=== PATIENT | male | born 1955 | race Caucasian/White ===

== ENCOUNTER 2017-03-15 15:49 | Emergency (ER) | payer OTHER ==
[2017-03-15 16:30] VITALS: BP 146/102
[2017-03-15] MEDS ORDERED: Diphtheria,Pertussis(Acell),Tetanus Vaccine 0.5 ML SDV IM ONE (18:11)
[2017-03-15] MEDS ORDERED: Clindamycin Phosphate 600 MG in Sodium Chloride 0.9% 100 ML IV ONE (18:13)
[2017-03-15] MEDS ORDERED: Sodium Chloride 0.9% 10 ML Syringe FLUSH PRN (18:14)
--- NOTE | 2017-03-15 18:19 | EDM.PDOC ---
ED HPI GENERAL MEDICAL PROBLEM - General Chief Complaint: Bite:Animal, Insect Stated Complaint: DOG BITE, [id number] Time Seen by Provider: 03/15/17 18:14 Source of Information: Reports: Patient History Limitations: Reports: No Limitations - History of Present Illness INITIAL COMMENTS - FREE TEXT/NARRATIVE: 62 yo male presents s/p dog bite. Was bitten on left hand and right foot by known dog who is now in quarantine. Multiple puncture wounds noted to hand. Small puncture to foot. Sensation intact, no decrease range of motion. Onset: Today, Sudden Location: Reports: Upper Extremity, Left, Lower Extremity, Right Quality: Reports: Ache Severity: Mild Improves with: Reports: None Worsens with: Reports: None Associated Symptoms: Reports: No Other Symptoms Generalized Pain Score (Numeric/FACES): 6 - Related Data Allergies Allergy/AdvReac Type Severity Reaction Status Date / Time Penicillins Allergy Cannot Verified 03/15/17 18:55 Remember Home Meds: Home Meds Tamsulosin [Flomax] 0.4 mg PO DAILY 08/16/13 [History] Omeprazole 20 mg PO ACBRK 06/23/15 [History] Lisinopril [Prinivil] 1 tab PO DAILY 03/15/17 [History] amLODIPine [Norvasc] 1 tab PO DAILY 03/15/17 [History] Past Medical History - Past Health History Medical/Surgical History: Denies Medical/Surgical History Other HEENT History: wears glasses while awake Other Psychiatric History: Suicide Ideation Social & Family History - Family History Family Medical History: Noncontributory - Tobacco Use Smoking Status *Q: Never Smoker Years of Tobacco use: 30 Packs/Tins Daily: 2 Used Tobacco, but Quit: Yes Month Tobacco Last Used: 10 yr Second Hand Smoke Exposure: No - Caffeine Use Caffeine Use: Reports: Coffee - Recreational Drug Use Recreational Drug Use: No ED ROS GENERAL - Review of Systems Review Of Systems: ROS reveals no pertinent complaints other than HPI. ED EXAM, ANIMAL BITE - Physical Exam Exam: See Below Exam Limited By: No Limitations General Appearance: Alert, WD/WN, No Apparent Distress Eye Exam: Bilateral Eye: EOMI, Normal Inspection, PERRL Respiratory/Chest: No Respiratory Distress, Lungs Clear, Normal Breath Sounds, No Accessory Muscle Use, Chest Non-Tender Cardiovascular: Normal Peripheral Pulses, Regular Rate, Rhythm, No Edema, No Gallop, No JVD, No Murmur, No Rub Extremities: Normal Inspection, Normal Range of Motion, Non-Tender, Normal Capillary Refill, No Pedal Edema Neurological: Alert, Oriented, CN II-XII Intact, Normal Cognition, Normal Gait, No Motor/Sensory Deficits Skin Exam: Normal Color, Warm/Dry, Other (puncture wounds to dorsum of hand x 2 , to dorsum web of third digit; medial right foot) Lymphatic: No Adenopathy ED ANIMAL BITE PROCEDURES - Laceration/Wound Repair Left Dorsal Hand Lac/Wound Length In cm: 1 (multiple punctures) Appearance: Subcutaneous Skin Prep: Chlorhexidine (Hibiciens), Saline Saline Irrigation (cc's): 300 Complications: No Progress/Comments: Irrigation of all wounds with chlorhexadine and saline. Course - Vital Signs Last Recorded V/S: Last Vital Signs Temp 98.2 F 03/15/17 16:27 Pulse 97 03/15/17 16:27 Resp 12 03/15/17 16:27 BP 146/102 H 03/15/17 16:27 Pulse Ox 100 03/15/17 16:27 - Orders/Labs/Meds Orders: Active Orders 24 hr Category Date Time Status Vaccines to be Administered [RC] PER UNIT ROUTINE Care 03/15/17 18:11 Active Saline Lock Insert [OM.PC] Stat Oth 03/15/17 18:14 Ordered Meds: Medications Discontinued Medications Generic Name Dose Route Start Last Admin Trade Name Freq PRN Reason Stop Dose Admin Bacitracin 1 dose 03/15/17 19:05 03/15/17 19:30 Bacitracin Oint 1 Gm TOP 03/15/17 19:06 1 dose ONETIME ONE Administration Diphtheria/Tetanus/Acell Pertussis 0.5 ml 03/15/17 18:11 03/15/17 18:57 Adacel IM 03/15/17 18:12 0.5 ml .ONCE ONE Administration Clindamycin Phosphate 600 mg/ 104 mls @ 200 mls/hr 03/15/17 18:13 03/15/17 18 :55 Sodium Chloride IV 03/15/17 18:44 200 mls/hr ONETIME ONE Administration Sodium Chloride 10 ml 03/15/17 18:14 Saline Flush FLUSH ASDIRECTED PRN Keep Vein Open Departure - Departure Time of Disposition: 19:50 Disposition: Home, Self-Care 01 Clinical Impression: Dog bite of hand Qualifiers: Encounter type: initial encounter Laterality: left Qualified Code(s): S61.452A - Open bite of left hand, initial encounter Dog bite of foot Qualifiers: Encounter type: initial encounter Laterality: right Qualified Code(s): S91.351A - Open bite, right foot, initial encounter - Discharge Information Instructions: Animal Bite, [id number] Referrals: PCP,None [Primary Care Provider] - Forms: ED Department Discharge Additional Instructions: Keep wounds clean and dry. Take antibiotics as prescribed. Follow up in 3-5 days with your PCP or in clinic for recheck of wound. Return for worsening symptoms. - My Orders Last 24 Hours: My Active Orders 03/15/17 18:11 Vaccines to be Administered [RC] PER UNIT ROUTINE 03/15/17 18:14 Saline Lock Insert [OM.PC] Stat - Assessment/Plan Last 24 Hours: My Active Orders 03/15/17 18:11 Vaccines to be Administered [RC] PER UNIT ROUTINE 03/15/17 18:14 Saline Lock Insert [OM.PC] Stat
[2017-03-15] MEDS ORDERED: Bacitracin Oint 1 GM U/D Packet TOP ONE (19:05)
== END 2017-03-15 19:56 | disposition home or self-care (01) ==
LOC: DL.ED 15:49
DX: S61.253A Open bite of left middle finger without damage to nail, initial encounter (principal); S91.351A Open bite, right foot, initial encounter; W54.0XXA Bitten by dog, initial encounter; Z88.0 Allergy status to penicillin; Z23 Encounter for immunization
CPT/HCPCS: 73120; 90471; 90715; 96365; 99283; J7050; S0077

== ENCOUNTER 2018-11-15 10:02 | Emergency (ER) | payer OTHER ==
[2018-11-15] MEDS ORDERED: Nitroglycerin 0.4 MG Tab.SL SL PRN (10:07)
[2018-11-15] MEDS ORDERED: Sodium Chloride 0.9% 10 ML Syringe FLUSH PRN (10:07)
[2018-11-15] MEDS ORDERED: Aspirin 81 MG Tab.Chew PO ONE (10:07)
--- NOTE | 2018-11-15 10:14 | EDM.PDOC ---
ED HPI GENERAL MEDICAL PROBLEM - General Chief Complaint: Chest Pain Stated Complaint: CHEST PAIN. PEEWEE IN NECK [id number] Time Seen by Provider: 11/15/18 10:03 Source of Information: Reports: Patient, Old Records, RN, RN Notes Reviewed History Limitations: Reports: No Limitations - History of Present Illness INITIAL COMMENTS - FREE TEXT/NARRATIVE: Pt presents to ER by POV with c/o sudden onset of squeezing chest pain at approx. 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 Pt states that the pain has nearly completely resolved on it's own, and rates the current pain 1/10. At the onset of pain he admits to a very slight sensation of nausea and shortness of breath. He states he was not under any physical exertion or emotional stress when the pain began. He had no other symptoms preceding the chest pain today. He denies any lightheadedness, syncope, near syncope, edema, orthopnea, or palpitations. Pt states that he did have one similar episode of chest pain sometime in the last year or two, but he did not seek medical evaluation at that time. Onset: Today, Sudden Onset Date: 11/15/18 Onset Time: 09:15 Duration: Constant, Improving Location: Reports: Chest Quality: Reports: Ache, Pressure Severity: Moderate Improves with: Reports: None Worsens with: Reports: None Associated Symptoms: Reports: No Other Symptoms Middle Chest Pain Score (Numeric/FACES): 1 - Related Data Allergies Allergy/AdvReac Type Severity Reaction Status Date / Time Penicillins Allergy Cannot Verified 11/15/18 10:07 Remember Home Meds: Home Meds Tamsulosin [Flomax] 0.4 mg PO DAILY 08/16/13 [History] Omeprazole 20 mg PO ACBRK 06/23/15 [History] Lisinopril [Prinivil] 1 tab PO DAILY 03/15/17 [History] amLODIPine [Norvasc] 5 mg PO DAILY 03/15/17 [History] Multivitamin [Multi-Vitamin Daily] 1 tab PO DAILY 11/15/18 [History] Past Medical History - Past Health History Medical/Surgical History: Denies Medical/Surgical History Other HEENT History: wears glasses while awake Cardiovascular History: Reports: Hypertension Gastrointestinal History: Reports: GERD Genitourinary History: Reports: BPH, Prostate Disorder, Renal Calculus Other Psychiatric History: Suicide Ideation Endocrine/Metabolic History: Reports: Obesity/BMI 30+ Social & Family History - Family History Family Medical History: Noncontributory - Tobacco Use Smoking Status *Q: Former Smoker Tobacco Use Within Last Twelve Months: Cigarettes - Caffeine Use Caffeine Use: Reports: Coffee - Recreational Drug Use Recreational Drug Use: No - Living Situation & Occupation Living situation: Reports: , with Spouse ED ROS GENERAL - Review of Systems Review Of Systems: ROS reveals no pertinent complaints other than HPI. ED EXAM, GENERAL - Physical Exam Exam: See Below Exam Limited By: No Limitations General Appearance: Alert, WD/WN, No Apparent Distress Eye Exam: Bilateral Eye: Normal Inspection Ears: Hearing Grossly Normal Nose: Normal Inspection, Normal Mucosa, No Blood Throat/Mouth: Normal Inspection, Normal Lips, Normal Teeth, Normal Gums, Normal Oropharynx, Normal Voice, No Airway Compromise Head: Atraumatic, Normocephalic Neck: Normal Inspection, Supple, Non-Tender, Full Range of Motion Respiratory/Chest: No Respiratory Distress, Lungs Clear, Normal Breath Sounds, No Accessory Muscle Use, Chest Non-Tender Cardiovascular: Normal Peripheral Pulses, Regular Rate, Rhythm, No Edema, No Gallop, No JVD, No Murmur, No Rub GI/Abdominal: Normal Bowel Sounds, Soft, Non-Tender, No Organomegaly, No Distention, No Abnormal Bruit, No Mass (Male) Exam: Deferred Rectal (Males) Exam: Deferred Back Exam: Normal Inspection, Full Range of Motion. No: CVA Tenderness (L), CVA Tenderness (R) Extremities: Normal Inspection, Normal Range of Motion, Non-Tender, Normal Capillary Refill, No Pedal Edema Neurological: Alert, Oriented, CN II-XII Intact, Normal Cognition, Normal Gait, No Motor/Sensory Deficits Psychiatric: Normal Affect, Normal Mood Skin Exam: Warm, Dry, Intact, Normal Color, No Rash EKG INTERPRETATION EKG Date: 11/15/18 Time: 10:09 Rhythm: Other (SR) Rate (Beats/Min): 79 [place]asper: LAD-Left Jasper Deviation P-Wave: Present QRS: Normal (with single PAC) ST-T: Normal QT: Normal Comparison: NA - No Prior EKG EKG Interpretation Comments: No acute ischemic changes. Course - Vital Signs Last Recorded V/S: Last Vital Signs Temp 36.4 C 11/15/18 10:07 Pulse 88 11/15/18 10:07 Resp 14 11/15/18 10:07 BP 149/89 H 11/15/18 10:07 Pulse Ox 100 11/15/18 10:07 - Orders/Labs/Meds Orders: Active Orders 24 hr Category Date Time Status EKG 12 Lead [EKG Documentation Completion] [RC] STAT Care 11/15/18 10:07 Active Peripheral IV Care [RC] . DIRECTED Care 11/15/18 10:08 Active Nitroglycerin [Nitrostat] Med 11/15/18 10:07 Active 0.4 mg SL Q5M PRN Sodium Chloride 0.9% [Saline Flush] Med 11/15/18 10:07 Active 10 ml FLUSH ASDIRECTED PRN Peripheral IV Insertion Adult [OM.PC] Stat Oth 11/15/18 10:07 Ordered Medication Orders Nitroglycerin (Nitrostat) 0.4 mg SL Q5M PRN PRN Reason: Chest Pain Sodium Chloride (Saline Flush) 10 ml FLUSH ASDIRECTED PRN PRN Reason: Keep Vein Open Last Admin: 11/15/18 10:20 Dose: 10 ml Labs: Laboratory Tests 11/15/18 11/15/18 11/15/18 Range/Units 10:10 10:10 10:10 WBC 5.8 (5.0-10.0) 10^3/uL RBC 4.86 (4.6-6.2) 10^6/uL Hgb 14.4 (14.0-18.0) g/dL Hct 42.1 (40.0-54.0) % MCV 86.6 D (80-100) fL MCH 29.6 (27.0-34.0) pg MCHC 34.2 (33.0-35.0) g/dL Plt Count 247 (150-450) 10^3/uL Neut % (Auto) 50.0 (42.2-75.2) % Lymph % (Auto) 36.5 (20.5-50.1) % [place] % (Auto) 9.9 H (2-8) % Eos % (Auto) 3.3 H (1.0-3.0) % Baso % (Auto) 0.3 (0.0-1.0) % D-Dimer, Quantitative 712 H (0-400) ng/mL Sodium 138 (135-145) mmol/L Potassium 3.9 (3.6-5.0) mmol/L Chloride 101 (101-111) mmol/L Carbon Dioxide 26.0 (21.0-31.0) mmol/L Anion Gap 14.9 BUN 12 (7-18) mg/dL Creatinine 0.9 (0.6-1.3) mg/dL Est Cr Clr Drug Dosing 85.62 mL/min Estimated GFR (MDRD) > 60 BUN/Creatinine Ratio 13.33 Glucose 89 (74-105) mg/dL Calcium 9.2 (8.4-10.2) mg/dl Total Bilirubin 0.8 (0.2-1.0) mg/dL AST 26 (10-42) IU/L ALT 21 (10-60) IU/L Alkaline Phosphatase 63 (42-121) IU/L Troponin I < 0.02 (0.00-0.02) ng/ml Total Protein 7.7 (6.7-8.2) g/dl Albumin 4.4 (3.2-5.5) g/dl Globulin 3.3 Albumin/Globulin Ratio 1.33 Amylase 71 (28-100) U/L Lipase 32 (22-51) U/L Meds: Medications Generic Name Dose Route Start Last Admin Trade Name Freq PRN Reason Stop Dose Admin Nitroglycerin 0.4 mg 11/15/18 10:07 Nitrostat SL Q5M PRN Chest Pain Sodium Chloride 10 ml 11/15/18 10:07 11/15/18 10:20 Saline Flush FLUSH 10 ml ASDIRECTED PRN Administration Keep Vein Open Discontinued Medications Generic Name Dose Route Start Last Admin Trade Name Freq PRN Reason Stop Dose Admin Aspirin 324 mg 11/15/18 10:07 11/15/18 10:20 Aspirin PO 11/15/18 10:08 324 mg ONETIME ONE Administration Iopamidol 100 ml 11/15/18 11:00 11/15/18 11:33 Isovue-370 (76%) IVPUSH 11/15/18 11:01 80 ml ONETIME ONE Administration - Radiology Interpretation Free Text/Narrative:: XR Chest: no acute process per Rad. report. CT Chest: no PE, no acute process, see Rad. report. Departure - Departure Time of Disposition: 12:14 Disposition: Home, Self-Care 01 Condition: Good Clinical Impression: Atypical chest pain Instructions: Nonspecific Chest Pain, [id number] Forms: ED Department Discharge Additional Instructions: Follow up in clinic with your primary doctor in the next week for recheck and consideration of cardiac stress test. Return to ER if chest pain returns or worsens. - My Orders Last 24 Hours: My Active Orders 11/15/18 10:07 EKG 12 Lead [EKG Documentation Completion] [RC] STAT Nitroglycerin [Nitrostat] 0.4 mg SL Q5M PRN Sodium Chloride 0.9% [Saline Flush] 10 ml FLUSH ASDIRECTED PRN Peripheral IV Insertion Adult [OM.PC] Stat 11/15/18 10:08 Peripheral IV Care [RC] . DIRECTED - Assessment/Plan Last 24 Hours: My Active Orders 11/15/18 10:07 EKG 12 Lead [EKG Documentation Completion] [RC] STAT Nitroglycerin [Nitrostat] 0.4 mg SL Q5M PRN Sodium Chloride 0.9% [Saline Flush] 10 ml FLUSH ASDIRECTED PRN Peripheral IV Insertion Adult [OM.PC] Stat 11/15/18 10:08 Peripheral IV Care [RC] . DIRECTED
[2018-11-15 10:20] VITALS: BP 149/89
[2018-11-15 10:40] LABS: ANION GAP 14.9; CHLORIDE,CL 101 mmol/L (101-111); SODIUM,NA 138 mmol/L (135-145)
[2018-11-15] MEDS ORDERED: Iopamidol 755 Mg/ML 100 ML Bottle IVPUSH ONE (11:00)
--- NOTE | 2018-11-15 11:18 | CR ---
Clinical history: 63-year-old male with chest pain. Interpretation: Upright AP portable chest film unremarkable except for less than optimal inspiratory effort. Normal cardiac silhouette without new cephalization of flow, signs of alveolar edema or dependent pleural fluid accumulation. No new lung mass, hilar lymphadenopathy or focal lobar pneumonia when compared to June 2015 exam. No atelectasis/collapse. No pneumothorax.
--- NOTE | 2018-11-15 12:04 | CT ---
Clinical history: 63-year-old 222 pound male with chest pain. Elevated serum D dimer (742). Rule out PE or infarct.. Scan technique: Volume acquisition of data from the chest (bony thorax, lungs and mediastinum) obtained during the intravenous administration 80 cc nonionic Isovue-370 contrast while patient was lying supine on the Siemens multislice scanner [place], [place]. All data archived in the PACS system for storage, reformatting axial/sagittal/coronal planes and study (lung/mediastinal windows). Interpretation: 1. No sign of intraluminal filling defect or thrombus pulmonary artery circulation. No peripheral lobar oligemia, infiltrate or pleural-based wedge shaped, infarcts. No pleural effusion. 2. No lung mass lesion or significant hilar/mediastinal lymphadenopathy. 3. No lobar pneumonia. Scattered small parenchymal lung cysts and a patchy "groundglass" density right upper lobe 4. Normal cardiac silhouette. No pericardial effusion, cephalization of flow, signs of alveolar edema or pleural effusion. 5. Huge 8.5 cm diameter upper pole cyst right kidney. Inhomogeneously dense gallbladder suggesting stones (sonogram?). 6. Old anterior compression vertebral bodies with marginal hypertrophic spondylosis and kyphosis at the T-L juncture. Normal caliber thoracic aorta i.e. no aneurysm or dissection. Small hiatus hernia. CONCLUSION: No evidence pulmonary embolism or infarct. No signs of heart failure, lung mass or lobar pneumonia. Renal cysts, bilaterally. Probably diseased gallbladder. Small hiatus hernia..
== END 2018-11-15 12:30 | disposition home or self-care (01) ==
LOC: DL.ED 10:02
DX: R07.89 Other chest pain (principal); I10 Essential (primary) hypertension; K21.9 Gastro-esophageal reflux disease without esophagitis; F17.210 Nicotine dependence, cigarettes, uncomplicated; Z88.0 Allergy status to penicillin; Z79.899 Other long term (current) drug therapy
CPT/HCPCS: 36415; 71045; 71260; 80053; 82150; 83690; 84484; 85025; 85379; 93005; 99285; A9270; Q9967

== ENCOUNTER 2018-11-22 06:03 | Day surgery (SDC) | payer OTHER ==
[~2018-11-22 06:03] MED LIST: Dextrose 5%-0.45% NaCl 1,000 ML IV SCH; Sodium Chloride 0.9% 10 ML Syringe FLUSH PRN
[2018-11-22] MEDS ORDERED: fentaNYL 100 MCG/2 ML SDV IV ONE ×3 (06:04→07:43)
[2018-11-22] MEDS ORDERED: Midazolam 1 MG/ML 2 ML SDV IV ONE ×3 (06:04→07:44)
[2018-11-22] MEDS ORDERED: Midazolam 1 MG/ML 2 ML SDV ONE (06:08)
[2018-11-22] MEDS ORDERED: fentaNYL 100 MCG/2 ML SDV ONE (06:08)
[2018-11-22 11:41] VITALS: BP 156/117
--- NOTE | 2018-11-22 12:33 | OR ---
DATE: 11/22/2018 PROCEDURE PERFORMED: Esophagogastroduodenoscopy and multiple pinch biopsies. INSTRUMENT USED: [id number]-[id number] Olympus video panendoscope. PREMEDICATIONS: No oral or topical anesthesia used. Fentanyl 100 mcg intravenous, Versed 2 mg intravenous. Nasal O2 cannula. The procedure was done under pulse oximetry, BP recording, and environmental monitoring specialist. INDICATION: The patient with long-standing heartburn, persistent in nature, on long-term PPI. Esophagogastroduodenoscopy is performed for detection of any active erosive lesions, Harp esophagus and/or malignancy also under consideration, H. pylori status to be determined, endoscopic hemostasis therapy if needed. DESCRIPTION OF PROCEDURE: The scope was passed with ease. Adequate visualization of the esophagus was made from proximal to distal areas. No upper esophageal lesions identified. No distal esophageal stricture. No uphill or downhill esophageal varices. No Park-[place]in tear. Grade 4 erosive changes were noted by [place] criteria. Proximally encroaching pink columnar epithelium was noted at around 35 cm distal to the oral verge. Sliding hiatal hernia was noted. No proximal gastric varices noted. Gastric fundus examination by retroflexion showed no polypoid lesions. No gastric ulcer, malignant mass, or vascular ectasia identified. Duodenal bulb showed no ulcer. Visualized second part of the duodenum was unremarkable. Multiple pinch biopsies were taken from the gastric antrum and proximal body and sent for PyloriTek test for H. pylori, and if negative in an hour, tissue is to be sent for histopathology. No bleeding was noted from any of the visualized areas at the completion of the examination. Photographs were taken of the duodenal bulb, gastric antrum, fundus, and distal esophagus. IMPRESSION: 1. Sliding hiatal hernia. 2. Grade D gastroesophageal reflux disease. The patient tolerated the procedure well. [facility] /[id number]
== END 2018-11-22 09:55 | disposition home or self-care (01) ==
LOC: DL.ENDO 06:03
PROVIDERS: ATTEND Internal Medicine Gastroenterology
DX: K21.0 Gastro-esophageal reflux disease with esophagitis (principal); K44.9 Diaphragmatic hernia without obstruction or gangrene; K62.5 Hemorrhage of anus and rectum; I10 Essential (primary) hypertension; F32.9 Major depressive disorder, single episode, unspecified; M19.90 Unspecified osteoarthritis, unspecified site; N28.1 Cyst of kidney, acquired; E66.09 Other obesity due to excess calories; Z68.32 Body mass index [BMI] 32.0-32.9, adult; Z88.0 Allergy status to penicillin; Z87.891 Personal history of nicotine dependence; Z79.899 Other long term (current) drug therapy
CPT/HCPCS: 43239; 87077; J2250; J3010; J7042

== ENCOUNTER 2018-11-23 05:29 | Day surgery (SDC) | payer OTHER ==
[2018-11-23] MEDS ORDERED: Midazolam 1 MG/ML 2 ML SDV IV ONE ×5 (05:30→07:16)
[2018-11-23] MEDS ORDERED: fentaNYL 100 MCG/2 ML SDV IV ONE ×3 (05:30→07:06)
[2018-11-23] MEDS ORDERED: Midazolam 1 MG/ML 2 ML SDV ONE (06:14)
[2018-11-23] MEDS ORDERED: fentaNYL 100 MCG/2 ML SDV ONE (06:14)
[2018-11-23] MEDS ORDERED: Dextrose 5%-0.45% NaCl 1,000 ML IV SCH (06:30)
[2018-11-23 09:33] VITALS: BP 139/97
--- NOTE | 2018-11-23 11:51 | OR ---
DATE: 11/23/2018 PROCEDURE PERFORMED: Total colonoscopy and cold snare polypectomy. INSTRUMENT USED: [id number]-IR005T Olympus video colonoscope. PREMEDICATIONS: Fentanyl 100 mcg intravenous, Versed 3 mg intravenous. Nasal O2 cannula. The procedure was done under pulse oximetry, BP recording, and ekg monitor. INDICATION: The patient with rectal bleeding and positive FIT. Colonoscopic examination is done for detection of any polypoid lesions and removal, endoscopic hemostasis therapy if needed. DESCRIPTION OF PROCEDURE: Initial rectal exam showed BPH. Rigid anoscopy was normal. The colonoscope was passed with ease up to the ileocecal area. Photographs were taken of the normal-appearing cecum, identified by appendiceal orifice and double-bulged ileocecal folds. In the mid descending colon area, a 3 mm sized benign-appearing polyp was noted. Photograph was taken. Cold snare polypectomy was done, the tissue was retrieved and sent for histopathology. No bleeding was noted from any of the visualized areas at the commencement of the examination. The bowel preparation was found to be adequate, Winslow scale 3. No stricture. No vascular ectasia. No large isolated ulcerations seen. No evidence of diffuse inflammatory bowel disease in the form of friability, contact bleeding, or ulcerations. Probing the proximal sides of folds and flexures using adequate distention and clearing up the stool material, withdrawal of the scope was made, cecum to rectum, time over 6 minutes. No bleeding was noted from any of the visualized areas at the completion of the examination. IMPRESSION: 1. Internal hemorrhoids. 2. Diminutive colonic polyp. The patient tolerated the procedure well. [facility] /[id number]
== END 2018-11-23 09:35 | disposition home or self-care (01) ==
LOC: EEVIPCON 05:29 → DL.ENDO 05:29
PROVIDERS: ATTEND Internal Medicine Gastroenterology
DX: D12.4 Benign neoplasm of descending colon (principal); K64.8 Other hemorrhoids; I10 Essential (primary) hypertension; K21.9 Gastro-esophageal reflux disease without esophagitis; N28.1 Cyst of kidney, acquired; N40.0 Benign prostatic hyperplasia without lower urinary tract symptoms; N52.9 Male erectile dysfunction, unspecified; M19.90 Unspecified osteoarthritis, unspecified site; F32.9 Major depressive disorder, single episode, unspecified; Z87.891 Personal history of nicotine dependence; E66.09 Other obesity due to excess calories; Z68.31 Body mass index [BMI] 31.0-31.9, adult; Z88.0 Allergy status to penicillin; Z98.890 Other specified postprocedural states
CPT/HCPCS: 45385; J2250; J3010; J7042

== ENCOUNTER 2019-05-26 12:21 | Emergency (ER) | payer MEDICARE, OTHER ==
[2019-05-26] MEDS ORDERED: Nitroglycerin 0.4 MG Tab.SL SL PRN (12:24)
[2019-05-26] MEDS ORDERED: Aspirin 81 MG Tab.Chew PO ONE (12:24)
[2019-05-26] MEDS ORDERED: Sodium Chloride 0.9% 10 ML Syringe FLUSH PRN (12:24)
[2019-05-26 12:58] LABS: ANION GAP 11.7; CHLORIDE,CL 103 mmol/L (101-111); SODIUM,NA 139 mmol/L (135-145)
[2019-05-26 17:37] VITALS: BP 120/88; PULSE 84
--- NOTE | 2019-05-26 17:57 | EDM.PDOC ---
Scribed by Zelda Griffin 05/26/19 1328 for Yeni Ayers MD ED HPI GENERAL MEDICAL PROBLEM - General Chief Complaint: Chest Pain Stated Complaint: chest pains [id number] Time Seen by Provider: 05/26/19 12:24 Source of Information: Reports: Patient, RN, RN Notes Reviewed History Limitations: Reports: No Limitations - History of Present Illness INITIAL COMMENTS - FREE TEXT/NARRATIVE: Patient presents to ER by POV with complaints of mid-sternum chest pain at approximately 11:30 hours radiating to his back. Patient states he is under recent stress with family. Denies shortness of breath or any other symptoms. At the time of onset he was moving some heavy household items as he was vacating his [id number] home. Currently rates pain 2/10. The pain is intermittent. He denies nausea, abdominal pain, shortness of breath or palpitations. He denies any prior history of cardiovascular disease. Onset: Today Duration: Waxing/Waning Location: Reports: Chest Quality: Reports: Pressure Severity: Mild Improves with: Reports: None Worsens with: Reports: None Associated Symptoms: Reports: No Other Symptoms Mid-Sternal Chest Pain Score (Numeric/FACES): 2 - Related Data Allergies Allergy/AdvReac Type Severity Reaction Status Date / Time Penicillins Allergy Cannot Verified 01/14/19 06:05 Remember Home Meds: Home Meds Tamsulosin [Flomax] 0.4 mg PO DAILY 08/16/13 [History] Omeprazole 20 mg PO ACBRK 06/23/15 [History] Lisinopril [Prinivil] 20 mg PO DAILY 03/15/17 [History] Multivitamin [Multi-Vitamin Daily] 1 tab PO DAILY 11/15/18 [History] amLODIPine Besylate [Amlodipine Besylate] 10 mg PO DAILY 01/10/19 [History] Past Medical History - Past Health History Medical/Surgical History: Denies Medical/Surgical History HEENT History: Reports: Impaired Vision, Other (See Below) Other HEENT History: wears glasses while awake Cardiovascular History: Reports: Hypertension Respiratory History: Reports: None Gastrointestinal History: Reports: GERD Genitourinary History: Reports: BPH, Prostate Disorder, Renal Calculus Musculoskeletal History: Reports: Fracture Other Musculoskeletal History: PREVIOUS RIGHT HAND FRACTURE Neurological History: Reports: None Other Neuro History: PT REPORTS TREMORS Psychiatric History: Reports: Suicidal Ideation Other Psychiatric History: Suicide Ideation Endocrine/Metabolic History: Reports: Obesity/BMI 30+ Hematologic History: Reports: None Immunologic History: Reports: None Oncologic (Cancer) History: Reports: None Dermatologic History: Reports: None - Infectious Disease History Infectious Disease History: Reports: None - Past Surgical History Head Surgeries/Procedures: Reports: None HEENT Surgical History: Reports: Tonsillectomy Cardiovascular Surgical History: Reports: None Respiratory Surgical History: Reports: None GI Surgical History: Reports: Colonoscopy, EGD Male Surgical History: Reports: Kidney Stone Extraction, Prostate Biopsy, Prostatectomy Endocrine Surgical History: Reports: None Neurological Surgical History: Reports: None Musculoskeletal Surgical History: Reports: Other (See Below) Other Musculoskeletal Surgeries/Procedures:: right hand fracture Oncologic Surgical History: Reports: None Dermatological Surgical History: Reports: None Social & Family History - Family History Family Medical History: Noncontributory - Caffeine Use Caffeine Use: Reports: Coffee, Soda Other Caffeine Use: 1 CUP OF COFFEE DAILY Caffeine Use Comment: OCCASSIONAL SODA POP - Living Situation & Occupation Living situation: Reports: , with Spouse ED ROS GENERAL - Review of Systems Review Of Systems: ROS reveals no pertinent complaints other than HPI. ED EXAM, GENERAL - Physical Exam Exam: See Below Exam Limited By: No Limitations General Appearance: Alert, WD/WN, No Apparent Distress Nose: Normal Inspection, No Blood Throat/Mouth: Normal Inspection, Normal Lips, Normal Teeth, Normal Gums, Normal Voice, No Airway Compromise Head: Atraumatic, Normocephalic Neck: Normal Inspection, Supple, Non-Tender, Full Range of Motion Respiratory/Chest: No Respiratory Distress, Lungs Clear, Normal Breath Sounds, No Accessory Muscle Use, Chest Non-Tender Cardiovascular: Normal Peripheral Pulses, Regular Rate, Rhythm, No Edema, No Gallop, No JVD, No Murmur, No Rub GI/Abdominal: Normal Bowel Sounds, Soft, Non-Tender, No Organomegaly, No Distention, No Abnormal Bruit, No Mass Back Exam: Normal Inspection Extremities: Normal Inspection, Normal Range of Motion, Non-Tender, Normal Capillary Refill, No Pedal Edema Neurological: Alert, Oriented, CN II-XII Intact, Normal Cognition, Normal Gait, No Motor/Sensory Deficits Psychiatric: Normal Affect, Normal Mood Skin Exam: Warm, Dry, Intact, Normal Color, No Rash EKG INTERPRETATION EKG Date: 05/26/19 Time: 12:31 Rhythm: Other (sinus rhythm) Rate (Beats/Min): 89 [place]: Normal P-Wave: Present QRS: Other (left anterior fascicular block) ST-T: Normal QT: Normal Comparison: No Change EKG Interpretation Comments: No acute ischemic changes. Second EKG done at 1752 is unchanged from the prior one. Course - Vital Signs Last Recorded V/S: Last Vital Signs Temp 97.8 F 05/26/19 13:33 Pulse 84 05/26/19 17:35 Resp 17 05/26/19 17:35 BP 120/88 05/26/19 17:35 Pulse Ox 97 05/26/19 17:35 - Orders/Labs/Meds Orders: Active Orders 24 hr Category Date Time Status EKG 12 Lead [EKG Documentation Completion] [RC] STAT Care 05/26/19 12:24 Active EKG Documentation Completion [RC] ONETIME Care 05/26/19 17:00 Active Peripheral IV Care [RC] . DIRECTED Care 05/26/19 12:24 Active Heart Healthy Diet [DIET] Diet 05/26/19 Dinner Active Nitroglycerin [Nitrostat] Med 05/26/19 12:24 Active 0.4 mg SL Q5M PRN Sodium Chloride 0.9% [Saline Flush] Med 05/26/19 12:24 Active 10 ml FLUSH ASDIRECTED PRN Peripheral IV Insertion Adult [OM.PC] Stat Oth 05/26/19 12:24 Ordered Medication Orders Nitroglycerin (Nitrostat) 0.4 mg SL Q5M PRN PRN Reason: Chest Pain Sodium Chloride (Saline Flush) 10 ml FLUSH ASDIRECTED PRN PRN Reason: Keep Vein Open Last Admin: 05/26/19 12:30 Dose: 10 ml Labs: Laboratory Tests 05/26/19 05/26/19 05/26/19 Range/Units 12:28 12:28 12:28 WBC 6.9 (5.0-10.0) 10^3/uL RBC 4.76 (4.6-6.2) 10^6/uL Hgb 14.0 (14.0-18.0) g/dL Hct 40.9 (40.0-54.0) % MCV 85.9 (80-100) fL MCH 29.4 (27.0-34.0) pg MCHC 34.2 (33.0-35.0) g/dL Plt Count 216 (150-450) 10^3/uL Neut % (Auto) 56.8 (42.2-75.2) % Lymph % (Auto) 29.8 (20.5-50.1) % [place] % (Auto) 10.2 H (2-8) % Eos % (Auto) 2.8 (1.0-3.0) % Baso % (Auto) 0.4 (0.0-1.0) % PT 9.5 (9.0-12.0) SEC INR 0.9 (0.9-1.2) APTT 23.9 (22.0-34.0) SEC Sodium 139 (135-145) mmol/L Potassium 3.7 (3.6-5.0) mmol/L Chloride 103 (101-111) mmol/L Carbon Dioxide 28.0 (21.0-31.0) mmol/L Anion Gap 11.7 BUN 14 (7-18) mg/dL Creatinine 1.2 (0.6-1.3) mg/dL Est Cr Clr Drug Dosing 57.38 mL/min Estimated GFR (MDRD) > 60 BUN/Creatinine Ratio 11.66 Glucose 88 (74-105) mg/dL Calcium 8.7 (8.4-10.2) mg/dl Total Bilirubin 0.9 (0.2-1.0) mg/dL AST 24 (10-42) IU/L ALT 22 (10-60) IU/L Alkaline Phosphatase 54 (42-121) IU/L Troponin I < 0.02 (0.00-0.02) ng/ml Total Protein 7.1 (6.7-8.2) g/dl Albumin 4.2 (3.2-5.5) g/dl Globulin 2.9 Albumin/Globulin Ratio 1.45 Lipase 32 (22-51) U/L 05/26/19 Range/Units 17:05 WBC (5.0-10.0) 10^3/uL RBC (4.6-6.2) 10^6/uL Hgb (14.0-18.0) g/dL Hct (40.0-54.0) % MCV (80-100) fL MCH (27.0-34.0) pg MCHC (33.0-35.0) g/dL Plt Count (150-450) 10^3/uL Neut % (Auto) (42.2-75.2) % Lymph % (Auto) (20.5-50.1) % [place] % (Auto) (2-8) % Eos % (Auto) (1.0-3.0) % Baso % (Auto) (0.0-1.0) % PT (9.0-12.0) SEC INR (0.9-1.2) APTT (22.0-34.0) SEC Sodium (135-145) mmol/L Potassium (3.6-5.0) mmol/L Chloride (101-111) mmol/L Carbon Dioxide (21.0-31.0) mmol/L Anion Gap BUN (7-18) mg/dL Creatinine (0.6-1.3) mg/dL Est Cr Clr Drug Dosing mL/min Estimated GFR (MDRD) BUN/Creatinine Ratio Glucose (74-105) mg/dL Calcium (8.4-10.2) mg/dl Total Bilirubin (0.2-1.0) mg/dL AST (10-42) IU/L ALT (10-60) IU/L Alkaline Phosphatase (42-121) IU/L Troponin I < 0.02 (0.00-0.02) ng/ml Total Protein (6.7-8.2) g/dl Albumin (3.2-5.5) g/dl Globulin Albumin/Globulin Ratio Lipase (22-51) U/L Meds: Medications Generic Name Dose Route Start Last Admin Trade Name Freq PRN Reason Stop Dose Admin Nitroglycerin 0.4 mg 05/26/19 12:24 Nitrostat SL Q5M PRN Chest Pain Sodium Chloride 10 ml 05/26/19 12:24 05/26/19 12:30 Saline Flush FLUSH 10 ml ASDIRECTED PRN Administration Keep Vein Open Discontinued Medications Generic Name Dose Route Start Last Admin Trade Name Freq PRN Reason Stop Dose Admin Aspirin 324 mg 05/26/19 12:24 05/26/19 12:30 Aspirin PO 05/26/19 12:25 324 mg ONETIME ONE Administration - Radiology Interpretation Free Text/Narrative:: [facility] [place] [facility] Final Radiology Report Call: [phone] assistance Online chat: [email or web address] Name: NITZA RANDOLPH Age: 64Years M Date: 05/26/2019 SSN: -- : [id number] Study: XR CHEST 1 VIEW FRONTAL Requesting Physician: YENI AYERS Images: 1 Addl Studies: Provided Clinical History: Contrast: Contrast Medium: Contrast Amount: Contrast Method: CONFIDENTIALITY STATEMENT This report is intended only for use by the referring physician, and only in accordance with law. If you received this in error, call [phone]. Page 1 of 1 PROCEDURE INFORMATION: Exam: XR Chest, 1 View Exam date and time: 05/26/2019 12:36 PM Clinical history: 64 years old, male; Chest pain; Type not specified TECHNIQUE: Imaging protocol: XR of the chest Views: 1 view. COMPARISON: CR Chest 1V Frontal 11/15/2018 10:17 AM FINDINGS: Lungs: Projection is lordotic. Lung volumes are low. Minimal bronchovascular crowding at the lung bases. No dense consolidation. Pleural space: Unremarkable. No pleural effusion. No pneumothorax. Heart/Mediastinum: Heart size is enlarged. Aorta is tortuous. Diaphragm: Increased elevation of the right hemidiaphragm compared to the left. Bones/joints: Unremarkable. IMPRESSION: 1. Low lung volumes with bronchovascular crowding at the lung bases but no pneumonia area of increased elevation of the right hemidiaphragm. 2. Cardiomegaly and tortuous aorta. Thank you for allowing us to participate in the care of your patient. Dictated and Authenticated by: Digna Ackerman MD 05/26/2019 1:26 PM Central Time ([place] & [place]) - Re-Assessments/Exams Free Text/Narrative Re-Assessment/Exam: 05/26/19 13:24 Pt's initial evaluation is negative for ACS/AMI. He has never had a cardiac stress test or any advanced cardiac work up, therefore pt will be kept as extended ER stay for four hour repeat Troponin and EKG with continuous telemetry monitoring. Departure - Departure Time of Disposition: 17:56 Disposition: Home, Self-Care 01 Condition: Good Clinical Impression: Atypical chest pain Instructions: Nonspecific Chest Pain Forms: ED Department Discharge Additional Instructions: Follow up in clinic with your primary doctor this week for recheck and consideration of cardiac stress testing. Return to ER is worse at any time. - My Orders Last 24 Hours: My Active Orders 05/26/19 12:24 EKG 12 Lead [EKG Documentation Completion] [RC] STAT Peripheral IV Care [RC] . DIRECTED Nitroglycerin [Nitrostat] 0.4 mg SL Q5M PRN Sodium Chloride 0.9% [Saline Flush] 10 ml FLUSH ASDIRECTED PRN Peripheral IV Insertion Adult [OM.PC] Stat 05/26/19 17:00 EKG Documentation Completion [RC] ONETIME 05/26/19 Dinner Heart Healthy Diet [DIET] - Assessment/Plan Last 24 Hours: My Active Orders 05/26/19 12:24 EKG 12 Lead [EKG Documentation Completion] [RC] STAT Peripheral IV Care [RC] . DIRECTED Nitroglycerin [Nitrostat] 0.4 mg SL Q5M PRN Sodium Chloride 0.9% [Saline Flush] 10 ml FLUSH ASDIRECTED PRN Peripheral IV Insertion Adult [OM.PC] Stat 05/26/19 17:00 EKG Documentation Completion [RC] ONETIME 05/26/19 Dinner Heart Healthy Diet [DIET] I have read and agree with the documentation that has been completed regarding this visit. By signing this record, I attest that the documentation was completed in my physical presence and is an accurate record of the encounter.
== END 2019-05-26 18:10 | disposition home or self-care (01) ==
LOC: DL.ED 12:21
DX: R07.89 Other chest pain (principal); I10 Essential (primary) hypertension; E66.9 Obesity, unspecified; Z88.0 Allergy status to penicillin; Z79.899 Other long term (current) drug therapy; Z98.890 Other specified postprocedural states
CPT/HCPCS: 36415; 71045; 80053; 83690; 84484; 85025; 85610; 85730; 93005; 99285; A9270; 93010; 99284

== ENCOUNTER 2019-10-22 08:52 | Emergency (ER) | payer MEDICARE, OTHER ==
[2019-10-22 09:12] VITALS: BP 138/96; PULSE 78
--- NOTE | 2019-10-22 09:18 | EDM.PDOC ---
ED HPI GENERAL MEDICAL PROBLEM - General Chief Complaint: Fever Stated Complaint: POSSIBLE PNEUMONIA Time Seen by Provider: 10/22/19 09:00 Source of Information: Reports: Patient History Limitations: Reports: No Limitations - History of Present Illness INITIAL COMMENTS - FREE TEXT/NARRATIVE: Patient comes emergency department today from home with complaints of chills. He reports that it is not uncommon for him to have chills over the past 2 years. Primarily at night. Last night he noticed them a little bit more than normal. He really has no other complaints other than chills. He does complain of shortness of breath when bending over to tie his shoes although this is chronic for him. He has no other complaints of shortness of breath. He has no chest pain palpitations weakness dizziness lightheadedness. No new shortness of breath no cough or congestion. No fever. No abdominal pain no nausea no vomiting. No hematuria dysuria or urinary frequency. No diarrhea. No rash lesions sores on his skin. He only complains of chills which were last night and nothing at this time - Related Data Allergies Allergy/AdvReac Type Severity Reaction Status Date / Time Penicillins Allergy Cannot Verified 10/22/19 09:00 Remember Home Meds: Home Meds Tamsulosin [Flomax] 0.4 mg PO DAILY 08/16/13 [History] Omeprazole 20 mg PO ACBRK 06/23/15 [History] Lisinopril [Prinivil] 20 mg PO DAILY 03/15/17 [History] Multivitamin [Multi-Vitamin Daily] 1 tab PO DAILY 11/15/18 [History] amLODIPine Besylate [Amlodipine Besylate] 10 mg PO DAILY 01/10/19 [History] hydroCHLOROthiazide [Hydrochlorothiazide] 12.5 mg PO DAILY 10/22/19 [History] Past Medical History - Past Health History Medical/Surgical History: Denies Medical/Surgical History HEENT History: Reports: Impaired Vision, Other (See Below) Other HEENT History: wears glasses while awake Cardiovascular History: Reports: Hypertension Respiratory History: Reports: None Gastrointestinal History: Reports: GERD Genitourinary History: Reports: BPH, Prostate Disorder, Renal Calculus Musculoskeletal History: Reports: Fracture Other Musculoskeletal History: PREVIOUS RIGHT HAND FRACTURE Neurological History: Reports: None Other Neuro History: PT REPORTS TREMORS Psychiatric History: Reports: Suicidal Ideation Other Psychiatric History: Suicide Ideation Endocrine/Metabolic History: Reports: Obesity/BMI 30+ Hematologic History: Reports: None Immunologic History: Reports: None Oncologic (Cancer) History: Reports: None Dermatologic History: Reports: None - Infectious Disease History Infectious Disease History: Reports: None - Past Surgical History Head Surgeries/Procedures: Reports: None HEENT Surgical History: Reports: Tonsillectomy Cardiovascular Surgical History: Reports: None Respiratory Surgical History: Reports: None GI Surgical History: Reports: Colonoscopy, EGD Male Surgical History: Reports: Kidney Stone Extraction, Prostate Biopsy, Prostatectomy Endocrine Surgical History: Reports: None Neurological Surgical History: Reports: None Musculoskeletal Surgical History: Reports: Other (See Below) Other Musculoskeletal Surgeries/Procedures:: right hand fracture Oncologic Surgical History: Reports: None Dermatological Surgical History: Reports: None Social & Family History - Family History Family Medical History: Noncontributory - Caffeine Use Caffeine Use: Reports: Coffee, Soda Other Caffeine Use: 1 CUP OF COFFEE DAILY Caffeine Use Comment: OCCASSIONAL SODA POP - Living Situation & Occupation Living situation: Reports: , with Spouse ED ROS GENERAL - Review of Systems Review Of Systems: Comprehensive ROS is negative, except as noted in HPI. ED EXAM, GENERAL - Physical Exam Exam: See Below Exam Limited By: No Limitations General Appearance: Alert, WD/WN, No Apparent Distress Eye Exam: Bilateral Eye: EOMI, PERRL Ears: Normal External Exam, Normal Canal, Normal TMs Nose: Normal Inspection, Normal Mucosa Throat/Mouth: Normal Inspection, Normal Lips, Normal Teeth, Normal Oropharynx, Normal Voice, No Airway Compromise Head: Atraumatic, Normocephalic Neck: Normal Inspection, Supple Respiratory/Chest: No Respiratory Distress, Lungs Clear, Normal Breath Sounds, No Accessory Muscle Use, Chest Non-Tender Cardiovascular: Normal Peripheral Pulses, Regular Rate, Rhythm Peripheral Pulses: 2+: Radial (L), Radial (R), Posterior Tibial (L), Posterior Tibial (R), Dorsalis Pedis (L), Dorsalis Pedis (R) GI/Abdominal: Normal Bowel Sounds, Soft (Male) Exam: Deferred Rectal (Males) Exam: Deferred Back Exam: Normal Inspection, Full Range of Motion Extremities: Normal Inspection, Normal Range of Motion, Non-Tender, Normal Capillary Refill Neurological: Alert, Oriented, Normal Cognition, No Motor/Sensory Deficits Psychiatric: Normal Affect, Normal Mood Skin Exam: Warm, Dry, Intact, Normal Color, No Rash Course - Vital Signs Last Recorded V/S: Last Vital Signs Temp 37.4 C 10/22/19 08:55 Pulse 78 10/22/19 08:55 Resp 18 10/22/19 08:55 BP 138/96 H 10/22/19 08:55 Pulse Ox 98 10/22/19 08:55 - Orders/Labs/Meds Orders: Active Orders 24 hr Category Date Time Status EKG Documentation Completion [RC] STAT Care 10/22/19 09:18 Active CULTURE URINE [RM] Stat Lab 10/22/19 09:30 Received Labs: Laboratory Tests 10/22/19 10/22/19 10/22/19 Range/Units 09:30 09:32 09:32 WBC 15.6 H (5.0-10.0) 10^3/uL RBC 5.39 (4.6-6.2) 10^6/uL Hgb 15.8 D (14.0-18.0) g/dL Hct 46.3 (40.0-54.0) % MCV 85.9 (80-100) fL MCH 29.3 (27.0-34.0) pg MCHC 34.1 (33.0-35.0) g/dL Plt Count 215 (150-450) 10^3/uL Neut % (Auto) 81.2 H (42.2-75.2) % Lymph % (Auto) 11.4 L (20.5-50.1) % [place] % (Auto) 6.7 (2-8) % Eos % (Auto) 0.4 L (1.0-3.0) % Baso % (Auto) 0.3 (0.0-1.0) % Sodium 141 (136-145) mmol/L Potassium 4.4 (3.5-5.1) mmol/L Chloride 102 (98-107) mmol/L Carbon Dioxide 29 (21-32) mmol/L Anion Gap 14.4 H (7-13) mEq/L BUN 21 H (7-18) mg/dL Creatinine 1.30 (0.70-1.30) mg/dL Est Cr Clr Drug Dosing 58.49 mL/min Estimated GFR (MDRD) 55 BUN/Creatinine Ratio 16.2 (No establ ref range) Glucose 120 H (74-99) mg/dL Calcium 9.0 (8.5-10.1) mg/dL Total Bilirubin 0.6 (0.2-1.0) mg/dL AST 22 (15-37) U/L ALT 35 (16-63) U/L Alkaline Phosphatase 76 (46-116) U/L Troponin I < 0.017 (0.000-0.056) ng/mL C-Reactive Protein 1.5 H (0.0-0.9) mg/dL Total Protein 7.7 (6.4-8.2) g/dL Albumin 4.1 (3.4-5.0) g/dL Globulin 3.6 Albumin/Globulin Ratio 1.1 Urine Color Yellow (YELLOW) Urine Appearance Slightly cloudy (CLEAR) Urine pH 6.0 (5.0-9.0) Ur Specific [place] 1.020 (1.005-1.030) Urine Protein Negative (NEGATIVE) Urine Glucose (UA) Negative (NEGATIVE) Urine Ketones Negative (NEGATIVE) Urine Occult Blood Trace-lysed H (NEGATIVE) Urine Nitrite Positive H (NEGATIVE) Urine Bilirubin Negative (NEGATIVE) Urine Urobilinogen 0.2 (0.2-1.0) mg/dL Ur Leukocyte Esterase Small H (NEGATIVE) Urine RBC 0-5 /HPF Urine WBC 5-10 H (0-5/HPF) /HPF Ur Epithelial Cells Rare (NOT SEEN) /HPF Urine Bacteria Many H (0-FEW/HPF) /HPF Urine Mucus Few H (NOT SEEN) /LPF - Re-Assessments/Exams Free Text/Narrative Re-Assessment/Exam: 10/22/19 11:49 Really his presentation really does not guide me much with his HPI. Although clearly in his urine he is infectious. His chest x-ray is negative his EKG is umremarkable as well. Cultures urine this could be indicative of a urinary tract infection and it really does not present like prostatitis he has no rectal pain pressure pain with defecation pain with ejaculation has no symptoms. If is not improving he should recheck with primary care he is comfortable with this plan his questions were answered. Departure - Departure Time of Disposition: 10:16 Disposition: Home, Self-Care 01 Clinical Impression: UTI (urinary tract infection) Qualifiers: Urinary tract infection type: site unspecified Hematuria presence: without hematuria Qualified Code(s): N39.0 - Urinary tract infection, site not specified - Discharge Information Instructions: Urinary Tract Infection, Adult, [id number] Forms: ED Department Discharge Additional Instructions: Lots of fluids over the next few days. Tylenol as needed for pain fever. Cephalexin 1 capsule 4 times a day for 7 days. RX #28 given to the patient. Return to the ED if new or worsening symptoms. Follow up with PCP in the next 4-6 days if not improving sooner if worse. During the Covid- Pandemic please make sure and stay home and away from people. Wash hand prior to leaving the house and upon returning home. Leave the house to get ESSENTIALS ONLY like groceries, medications and true life threatening illness for ED visits. Otherwise contact the ED or your clinic prior to presentation to any healthcare facility. Sepsis Event Note - Focused Exam Vital Signs: Vital Signs Temp Pulse Resp BP Pulse Ox 10/22/19 08:55 37.4 C 78 18 138/96 H 98 Date Exam was Performed: 10/22/19 Time Exam was Performed: 11:44 - My Orders Last 24 Hours: My Active Orders 10/22/19 09:18 EKG Documentation Completion [RC] STAT 10/22/19 09:30 CULTURE URINE [RM] Stat - Assessment/Plan Last 24 Hours: My Active Orders 10/22/19 09:18 EKG Documentation Completion [RC] STAT 10/22/19 09:30 CULTURE URINE [RM] Stat Assessment:: UTI in a male Plan: Lots of fluids over the next few days. Tylenol as needed for pain fever. Cephalexin 1 capsule 4 times a day for 7 days. RX #28 given to the patient. Return to the ED if new or worsening symptoms. Follow up with PCP in the next 4-6 days if not improving sooner if worse. During the Covid- Pandemic please make sure and stay home and away from people. Wash hand prior to leaving the house and upon returning home. Leave the house to get ESSENTIALS ONLY like groceries, medications and true life threatening illness for ED visits. Otherwise contact the ED or your clinic prior to presentation to any healthcare facility.
[2019-10-22 09:59] LABS: ANION GAP 14.4 mEq/L (7-13); CHLORIDE,CL 102 mmol/L (98-107); SODIUM,NA 141 mmol/L (136-145)
== END 2019-10-22 10:28 | disposition home or self-care (01) ==
LOC: DL.ED 08:52
DX: N39.0 Urinary tract infection, site not specified (principal); K21.9 Gastro-esophageal reflux disease without esophagitis; I10 Essential (primary) hypertension; E66.9 Obesity, unspecified; Z68.33 Body mass index [BMI] 33.0-33.9, adult; Z88.0 Allergy status to penicillin
CPT/HCPCS: 36415; 71046; 80053; 81001; 84484; 85025; 86140; 87086; 93005; 99284-25

== ENCOUNTER 2021-02-01 07:56 | Emergency (ER) | payer MEDICARE, OTHER ==
[2021-02-01 08:11] VITALS: BP 165/105; PULSE 84
--- NOTE | 2021-02-01 10:57 | EDM.PDOC ---
ED HPI GENERAL MEDICAL PROBLEM - General Chief Complaint: Skin Complaint Stated Complaint: [id number] RASH ON LEFT ARM, TENDER SWOLLEN Time Seen by Provider: 02/01/21 10:35 Source of Information: Reports: Patient, RN, RN Notes Reviewed History Limitations: Reports: No Limitations - History of Present Illness INITIAL COMMENTS - FREE TEXT/NARRATIVE: Dustin is a 65 y/o male who presents to the ED via personal vehicle with complaints of a patch of redness and edema to his left posterior upper arm. The patient reports noting the area this morning and does not feel it is progressing in severity. He denies injury to the area, including insect bites. He denies loss of motor or sensory function to the extremity. He has not taken any medication for his symptoms. The patient does report receiving his first COVID vaccine dose in this extremity 10 days ago. He denies headache, vision changes, fever, shaking chills, palpitations, nausea, vomiting, or diarrhea. Left Arm Pain Score (Numeric/FACES): 2 - Related Data Allergies Allergy/AdvReac Type Severity Reaction Status Date / Time Penicillins Allergy Cannot Verified 02/01/21 08:15 Remember Home Meds: Home Meds Tamsulosin [Flomax] 0.4 mg PO DAILY 08/16/13 [History] Omeprazole 20 mg PO ACBRK 06/23/15 [History] Lisinopril [Prinivil] 20 mg PO DAILY 03/15/17 [History] Multivitamin [Multi-Vitamin Daily] 1 tab PO DAILY 11/15/18 [History] amLODIPine Besylate [Amlodipine Besylate] 10 mg PO DAILY 01/10/19 [History] hydroCHLOROthiazide [Hydrochlorothiazide] 12.5 mg PO DAILY 10/22/19 [History] Past Medical History - Past Health History Medical/Surgical History: Denies Medical/Surgical History HEENT History: Reports: Impaired Vision, Other (See Below) Other HEENT History: wears glasses while awake Cardiovascular History: Reports: Hypertension Other Cardiovascular History: Palpatations Respiratory History: Reports: None Other Respiratory History: Pneumonia Gastrointestinal History: Reports: GERD Genitourinary History: Reports: BPH, Prostate Disorder, Renal Calculus Musculoskeletal History: Reports: Fracture Other Musculoskeletal History: PREVIOUS RIGHT HAND FRACTURE Neurological History: Reports: None Other Neuro History: PT REPORTS TREMORS Psychiatric History: Reports: None Other Psychiatric History: Suicide Ideation Endocrine/Metabolic History: Reports: Obesity/BMI 30+ Hematologic History: Reports: None Immunologic History: Reports: None Oncologic (Cancer) History: Reports: None Dermatologic History: Reports: None - Infectious Disease History Infectious Disease History: Reports: None - Past Surgical History Head Surgeries/Procedures: Reports: None HEENT Surgical History: Reports: Tonsillectomy Cardiovascular Surgical History: Reports: None Respiratory Surgical History: Reports: None GI Surgical History: Reports: Colonoscopy, EGD Male Surgical History: Reports: Kidney Stone Extraction, Prostate Biopsy, Prostatectomy Endocrine Surgical History: Reports: None Neurological Surgical History: Reports: None Musculoskeletal Surgical History: Reports: Other (See Below) Other Musculoskeletal Surgeries/Procedures:: right hand fracture Oncologic Surgical History: Reports: None Dermatological Surgical History: Reports: None Social & Family History - Family History Family Medical History: No Pertinent Family History - Tobacco Use Tobacco Use Status *Q: Former Tobacco User Years of Tobacco use: 30 Packs/Tins Daily: 0 Used Tobacco, but Quit: Yes Month/Year Tobacco Last Used: - Caffeine Use Caffeine Use: Reports: Coffee Other Caffeine Use: 1 CUP OF COFFEE DAILY Caffeine Use Comment: OCCASSIONAL SODA POP - Recreational Drug Use Recreational Drug Use: No - Living Situation & Occupation Living situation: Reports: , with Spouse ED ROS GENERAL - Review of Systems Review Of Systems: Comprehensive ROS is negative, except as noted in HPI. ED EXAM, SKIN/RASH Exam: See Below Exam Limited By: No Limitations General Appearance: Alert, No Apparent Distress Eye Exam: Bilateral Eye: EOMI, Normal Inspection, PERRL (3mm) Ears: Normal External Exam, Hearing Grossly Normal Nose: Normal Inspection, Normal Mucosa, No Blood Throat/Mouth: Normal Inspection, Normal Oropharynx, Normal Voice, No Airway Compromise Head: Atraumatic, Normocephalic Neck: Normal Inspection, Supple, Non-Tender, Full Range of Motion. No: Lymphadenopathy (L), Lymphadenopathy (R) Respiratory/Chest: No Respiratory Distress, Lungs Clear, Normal Breath Sounds, No Accessory Muscle Use, Chest Non-Tender Cardiovascular: Normal Peripheral Pulses, Regular Rate, Rhythm, No Edema, No Gallop, No JVD, No Murmur, No Rub Peripheral Pulses: 2+: Radial (L), Radial (R) GI/Abdominal: Normal Bowel Sounds, Soft, Non-Tender, No Distention, No Abnormal Bruit, No Mass, Pelvis Stable (Male) Exam: Deferred Rectal (Males) Exam: Deferred Extremities: Normal Range of Motion, Normal Capillary Refill, Arm Pain (Mild tenderness to patch of edema and redness), Increased Warmth (2cm x 5cm patch to posterior upper arm), Redness (2cm x 5cm patch to posterior upper arm). No: Joint Swelling Neurological: Alert, Oriented, CN II-XII Intact, Normal Cognition, Normal Gait, No Motor/Sensory Deficits Psychiatric: Normal Affect, Normal Mood Skin: Warm, Dry, Intact, Erythema (2cm x 5cm patch to posterior upper arm), Increased Warmth (2cm x 5cm patch to posterior upper arm) Location, Skin: Upper Extremity, Left Characteristics: Erythematous Associated features: Warmth, Tenderness, Swelling, Inflammation. No: Crusting, Weeping Course - Vital Signs Last Recorded V/S: Last Vital Signs Temp 97.9 F 02/01/21 08:10 Pulse 84 02/01/21 08:10 Resp 18 02/01/21 08:10 BP 165/105 H 02/01/21 08:10 Pulse Ox 98 02/01/21 08:10 - Re-Assessments/Exams Free Text/Narrative Re-Assessment/Exam: 02/01/21 Findings of examination reviewed with patient. Discussed supportive cares for localized vaccination reaction. Red flag signs and symptoms which would warrant reevaluation reviewed. Patient verbalized understanding and agreement with the plan of care. Departure - Departure Time of Disposition: 10:51 Disposition: Home, Self-Care 01 Condition: Good Clinical Impression: Localized adverse drug reaction Vaccination reaction Qualifiers: Encounter type: initial encounter Qualified Code(s): T50.Z95A - Adverse effect of other vaccines and biological substances, initial encounter - Discharge Information *PRESCRIPTION DRUG MONITORING PROGRAM REVIEWED*: Not Applicable *COPY OF PRESCRIPTION DRUG MONITORING REPORT IN PATIENT DAISY: Not Applicable Instructions: Rash, Adult Forms: ED Department Discharge Additional Instructions: 1.) You may take ibuprofen (Advil/Motrin) 400mg every six hours, as pain and swelling persists. You may also take acetaminophen (Tylenol) 650mg every six hours, as pain persists. You may stagger these medications so you are receiving a dose every three hours. 2.) You may take Benadryl 25-50mg twice a day, as needed. 3.) You may apply a cold compress to the area, as pain and swelling persist. 4.) Follow up with primary care provider, or return to the emergency department, with any fever, shaking chills, persistent redness/pain/swelling for 14 days, or open wound to the area. Sepsis Event Note (ED) - Evaluation Sepsis Screening Result: No Definite Risk - Focused Exam Vital Signs: Vital Signs Temp Pulse Resp BP Pulse Ox 02/01/21 08:10 97.9 F 84 18 165/105 H 98
== END 2021-02-01 11:06 | disposition home or self-care (01) ==
LOC: DL.ED 07:56
DX: R60.0 Localized edema (principal); T50.B95A Adverse effect of other viral vaccines, initial encounter; I10 Essential (primary) hypertension; K21.9 Gastro-esophageal reflux disease without esophagitis; N40.0 Benign prostatic hyperplasia without lower urinary tract symptoms; E66.9 Obesity, unspecified; Z68.31 Body mass index [BMI] 31.0-31.9, adult; Z87.891 Personal history of nicotine dependence; Z88.0 Allergy status to penicillin; Z79.899 Other long term (current) drug therapy
CPT/HCPCS: 99282; 99283

== ENCOUNTER 2021-07-16 21:37 | Emergency (ER) | payer MEDICARE, OTHER ==
[2021-07-16 23:11] LABS: CORONAVIRUS COVID-19 NAA NEGATIVE (NEGATIVE)
[2021-07-17 00:26] VITALS: BP 124/94; PULSE 81
== END 2021-07-17 00:27 | disposition left against medical advice (07) ==
LOC: DL.ED 21:37
DX: M79.10 Myalgia, unspecified site (principal); Z53.21 Procedure and treatment not carried out due to patient leaving prior to being seen by health care provider; Z20.822 Contact with and (suspected) exposure to COVID-19
CPT/HCPCS: 0240U

== ENCOUNTER 2022-09-08 13:59 | Emergency (ER) | payer MEDICARE, OTHER ==
[2022-09-08 14:37] VITALS: BP 126/92; PULSE 80
[2022-09-08 15:04] LABS: ANION GAP 11.8 mEq/L (7-13); CHLORIDE,CL 101 mmol/L (98-107); SODIUM,NA 139 mmol/L (136-145)
[2022-09-08 15:14] LABS: ESTIMATED GFR 80 mL/min (>=60)
[2022-09-08 15:22] LABS: CORONAVIRUS COVID-19 NAA NEGATIVE (NEGATIVE); RESPIRATORY SYNCYTIAL VIR NAA NEGATIVE (NEGATIVE)
== END 2022-09-08 18:28 | disposition home or self-care (01) ==
LOC: DL.ED 13:59
DX: R07.89 Other chest pain (principal); R10.13 Epigastric pain; I10 Essential (primary) hypertension; N40.0 Benign prostatic hyperplasia without lower urinary tract symptoms; K21.9 Gastro-esophageal reflux disease without esophagitis; E66.9 Obesity, unspecified; Z68.30 Body mass index [BMI] 30.0-30.9, adult; Z88.0 Allergy status to penicillin; Z79.899 Other long term (current) drug therapy; Z87.891 Personal history of nicotine dependence; Z20.822 Contact with and (suspected) exposure to COVID-19
CPT/HCPCS: 0241U; 36415; 71045; 80053; 82150; 83690; 83880; 84443; 84484; 85025; 86140; 93005; 93010; 99284; 99285

== ENCOUNTER 2023-08-29 15:11 | Emergency (ER) | payer MEDICARE, OTHER ==
[2023-08-29 19:10] VITALS: BP 128/99; PULSE 84
[2023-08-29] MEDS: Clindamycin HCl 150 MG Cap PO ONE (19:12)
[2023-08-29] MEDS: Sulfamethoxazole/Trimethoprim 800-160 MG Tab PO ONE (19:12)
[2023-08-29] MEDS: Diphtheria,Pertussis(Acell),Tetanus Vaccine 0.5 ML Syringe IM ONE (19:14)
== END 2023-08-29 19:18 | disposition home or self-care (01) ==
LOC: DL.ED 15:11
DX: S41.151A Open bite of right upper arm, initial encounter (principal); I10 Essential (primary) hypertension; K21.9 Gastro-esophageal reflux disease without esophagitis; Z88.0 Allergy status to penicillin; Z23 Encounter for immunization; Z79.899 Other long term (current) drug therapy; W54.0XXA Bitten by dog, initial encounter; Y93.89 Activity, other specified
CPT/HCPCS: 12001; 90471; 90715; 99282; A9270

== ENCOUNTER 2024-02-23 16:55 | Inpatient (IN) | payer MEDICARE, OTHER ==
[2024-02-23] MEDS: Albuterol/Ipratropium 3.0-0.5 MG/3 ML Neb Soln NEB ONE (17:20)
[2024-02-23] MEDS: Sodium Chloride 0.9% 10 ML Syringe FLUSH PRN (17:21)
[2024-02-23 17:24] LABS: BASOPHILS PERCENT AUTO 0.3 % (0.0-1.0); EOSINOPHILS PERCENT AUTO 0.9 % (1.0-3.0); HEMATOCRIT 46.8 % (40.0-54.0); HEMOGLOBIN 15.6 g/dL (14.0-18.0); LYMPHOCYTES PERCENT AUTO 22.4 % (20.5-50.1); MEAN CORPUSCULAR HGB CONC 33.3 g/dL (33.0-35.0); MONOCYTES PERCENT AUTO 10.6 % (2-8); NEUTROPHILS PERCENT AUTO 65.8 % (42.2-75.2); PLATELET COUNT,PLT 240 10^3/uL (150-450); WHITE BLOOD CELL COUNT,WBC 12.5 10^3/uL (5.0-10.0)
[2024-02-23 17:54] LABS: LACTIC ACID 1.7 mmol/L (0.4-2.0)
[2024-02-23 18:00] LABS: A/G RATIO 0.8; ALANINE AMINOTRANSFERASE,ALT 16 U/L (16-63); ALBUMIN 3.5 g/dL (3.4-5.0); ALKALINE PHOSPHATASE 67 U/L (46-116); ANION GAP 13.9 mEq/L (7-13); ASPARTATE AMNIOTRANSFERASE,AST 16 U/L (15-37); BILIRUBIN TOTAL 0.7 mg/dL (0.2-1.0); BLOOD UREA NITROGEN,BUN 15 mg/dL (7-18); BUN/CREATININE RATIO 10.4 (No establ ref range); C-REACTIVE PROTEIN 8.67 ng/dL (<=0.50); CALCIUM 9.1 mg/dL (8.5-10.1); CARBON DIOXIDE,CO2 29 mmol/L (21-32); CHLORIDE,CL 101 mmol/L (98-107); CREATININE 1.44 mg/dL (0.70-1.30); EST CRCL DRUG DOSING (CG) 49.99 mL/min; GLUCOSE RANDOM 121 mg/dL (70-99); MAGNESIUM 1.8 mg/dL (1.8-2.4); POTASSIUM,K 3.9 mmol/L (3.5-5.1); PROTEIN TOTAL,TP 7.7 g/dL (6.4-8.2); SODIUM,NA 140 mmol/L (136-145)
[2024-02-23 18:04] LABS: ESTIMATED GFR 53 mL/min (>=60)
[2024-02-23] MEDS: Sodium Chloride 0.9% 1,000 ML IV ONE (18:14)
[2024-02-23] MEDS: Iopamidol 755 Mg/ML 100 ML Bottle IVPUSH ONE (18:30)
[2024-02-23] MEDS: Heparin Sodium 5,000 Units/ML Vial IVPUSH ONE (19:13)
[2024-02-23] MEDS: Heparin Sodium/0.45% NaCl 25,000 UNITS/500 ML BAG IV SCH (19:14)
[2024-02-23 19:32] LABS: PROTHROMBIN TIME 10.7 SEC (9.0-12.0); PTT,PARTIAL THROMBOPLSTIN TIME 25.1 SEC (22.0-34.0)
[2024-02-23] MEDS ORDERED: Morphine 2 MG/ML SYRINGE IVPUSH PRN (20:40)
[2024-02-23] MEDS ORDERED: Naloxone 2 MG/2 ML Syringe IVPUSH PRN (20:41)
[2024-02-23] MEDS ORDERED: Acetaminophen/oxyCODONE 325-5 MG Tab PO PRN (20:53)
[2024-02-23] MEDS ORDERED: Ondansetron 4 MG/2 ML SDV IVPUSH PRN (20:53)
[2024-02-23] MEDS ORDERED: Polyethylene Glycol 3350 Powder 17 GM Packet PO PRN (20:53)
[2024-02-23] MEDS ORDERED: Sennosides/Docusate Sodium 50-8.6 MG Tab PO PRN (20:53)
[2024-02-23] MEDS ORDERED: Albuterol/Ipratropium 3.0-0.5 MG/3 ML Neb Soln NEB PRN (20:53)
[2024-02-23] MEDS ORDERED: Magnesium Hydroxide 400 MG/5 ML Susp 30 ML Cup PO PRN (20:53)
[2024-02-23] MEDS ORDERED: hydrALAZINE 20 MG/ML SDV IVPUSH PRN (22:52)
[2024-02-23] MEDS ORDERED: Benzonatate 100 MG Cap PO PRN (23:09)
[2024-02-23] MEDS: Azithromycin 500 MG in Sodium Chloride 0.9% 250 ML IV ONE (23:50)
[2024-02-23] MEDS: Pantoprazole 40 MG Vial IVPUSH ONE (23:50)
[2024-02-23] MEDS: cefTRIAXone 2 GM Vial IVPUSH ONE (23:50)
[2024-02-24] MEDS: Sodium Chloride 0.9% 1,000 ML IV SCH
[2024-02-24] MEDS: Acetaminophen 325 MG Tab PO PRN (04:52)
[2024-02-24] MEDS: Omeprazole 20 MG Cap.CR PO SCH (04:54)
[2024-02-24] MEDS ORDERED: Omeprazole 20 MG Cap.CR PO SCH (06:00)
[2024-02-24] MEDS ORDERED: Pantoprazole 40 MG Tab.CR PO SCH (06:00)
[2024-02-24 07:16] LABS: BASOPHILS PERCENT AUTO 0.2 % (0.0-1.0); EOSINOPHILS PERCENT AUTO 0.9 % (1.0-3.0); HEMATOCRIT 37.4 % (40.0-54.0); HEMOGLOBIN 12.6 g/dL (14.0-18.0); LYMPHOCYTES PERCENT AUTO 20.3 % (20.5-50.1); MEAN CORPUSCULAR HEMOGLOBIN 30.4 pg (27.0-34.0); MEAN CORPUSCULAR HGB CONC 33.7 g/dL (33.0-35.0); MEAN CORPUSCULAR VOLUME 90.1 fL (80-100); MONOCYTES PERCENT AUTO 12.5 % (2-8); NEUTROPHILS PERCENT AUTO 66.1 % (42.2-75.2); PLATELET COUNT,PLT 162 10^3/uL (150-450); RED BLOOD CELL COUNT 4.15 10^6/uL (4.6-6.2); WHITE BLOOD CELL COUNT,WBC 8.1 10^3/uL (5.0-10.0)
[2024-02-24 07:29] LABS: HEMOGLOBIN A1C 5.4 % (<5.7)
[2024-02-24 07:35] LABS: A/G RATIO 0.79; ALBUMIN 2.6 g/dL (3.4-5.0); ANION GAP 12.6 mEq/L (7-13); BILIRUBIN TOTAL 0.4 mg/dL (0.2-1.0); BUN/CREATININE RATIO 12.5 (No establ ref range); CALCIUM 8.2 mg/dL (8.5-10.1); CREATININE 1.12 mg/dL (0.70-1.30); EST CRCL DRUG DOSING (CG) 64.27 mL/min; MAGNESIUM 1.7 mg/dL (1.8-2.4); POTASSIUM,K 3.6 mmol/L (3.5-5.1); PROTEIN TOTAL,TP 5.9 g/dL (6.4-8.2)
[2024-02-24] MEDS ORDERED: Lisinopril 20 MG Tab PO SCH (09:00)
[2024-02-24] MEDS ORDERED: Hydrochlorothiazide 25 MG Tab PO SCH (09:00)
[2024-02-24] MEDS: amLODIPine 5 MG Tab PO SCH (10:40)
[2024-02-24] MEDS: Magnesium Sulfate/Water 2 GM in Premix Bag 1 BAG IV ONE (10:40)
[2024-02-24] MEDS: Azithromycin 500 MG in Sodium Chloride 0.9% 250 ML IV SCH (10:40)
[2024-02-24] MEDS: Multivitamin Tab PO SCH (10:41)
[2024-02-24] MEDS: Tamsulosin 0.4 MG Cap.ER PO SCH (10:41)
[2024-02-24] MEDS: cefTRIAXone 1 GM Vial IVPUSH SCH (21:58)
[2024-02-24] MEDS: Zolpidem 5 MG Tab PO PRN (22:58)
[2024-02-25 02:08] LABS: ALBUMIN 2.5 g/dL (3.4-5.0); ANION GAP 11.7 mEq/L (7-13); BILIRUBIN TOTAL 0.3 mg/dL (0.2-1.0); BUN/CREATININE RATIO 10.2 (No establ ref range); CALCIUM 7.9 mg/dL (8.5-10.1); CREATININE 0.98 mg/dL (0.70-1.30); EST CRCL DRUG DOSING (CG) 72.42 mL/min; MAGNESIUM 1.8 mg/dL (1.8-2.4); PHOSPHORUS 2.8 mg/dL (2.6-4.7); POTASSIUM,K 3.7 mmol/L (3.5-5.1); PROTEIN TOTAL,TP 5.6 g/dL (6.4-8.2)
[2024-02-25 02:18] LABS: A/G RATIO 0.81
[2024-02-25] MEDS: Heparin Sodium 5,000 Units/ML Vial IVPUSH ONE (03:15)
[2024-02-25 07:17] LABS: BASOPHILS PERCENT AUTO 0.3 % (0.0-1.0); HEMATOCRIT 37.4 % (40.0-54.0); HEMOGLOBIN 12.5 g/dL (14.0-18.0); MEAN CORPUSCULAR HEMOGLOBIN 30.3 pg (27.0-34.0); MEAN CORPUSCULAR HGB CONC 33.4 g/dL (33.0-35.0); MEAN CORPUSCULAR VOLUME 90.6 fL (80-100); MONOCYTES PERCENT AUTO 12.1 % (2-8); NEUTROPHILS PERCENT AUTO 67.6 % (42.2-75.2); PLATELET COUNT,PLT 184 10^3/uL (150-450); RED BLOOD CELL COUNT 4.13 10^6/uL (4.6-6.2); WHITE BLOOD CELL COUNT,WBC 7.5 10^3/uL (5.0-10.0)
[2024-02-25] MEDS: Metoprolol Tartrate 5 MG/5 ML SDV IVPUSH PRN (08:48)
[2024-02-25] MEDS: Metoprolol Tartrate 25 MG Tab PO SCH (10:26)
[2024-02-25] MEDS: Diltiazem 125 MG in Sodium Chloride 0.9% 100 ML IV SCH (10:35)
[2024-02-25] MEDS: Sodium Chloride 0.9% 100 ML ONE (10:40)
[2024-02-25] MEDS: Apixaban 5 MG Tab PO SCH (21:28)
[2024-02-26 06:23] LABS: BASOPHILS PERCENT AUTO 0.5 % (0.0-1.0); EOSINOPHILS PERCENT AUTO 3.5 % (1.0-3.0); HEMATOCRIT 36.7 % (40.0-54.0); HEMOGLOBIN 12.2 g/dL (14.0-18.0); LYMPHOCYTES PERCENT AUTO 24.8 % (20.5-50.1); MEAN CORPUSCULAR HEMOGLOBIN 29.9 pg (27.0-34.0); MEAN CORPUSCULAR HGB CONC 33.2 g/dL (33.0-35.0); MONOCYTES PERCENT AUTO 10.4 % (2-8); NEUTROPHILS PERCENT AUTO 60.8 % (42.2-75.2); PLATELET COUNT,PLT 205 10^3/uL (150-450); RED BLOOD CELL COUNT 4.08 10^6/uL (4.6-6.2); WHITE BLOOD CELL COUNT,WBC 5.8 10^3/uL (5.0-10.0)
[2024-02-26 06:55] LABS: ALBUMIN 2.6 g/dL (3.4-5.0); ANION GAP 11.7 mEq/L (7-13); BILIRUBIN TOTAL 0.4 mg/dL (0.2-1.0); BUN/CREATININE RATIO 9.3 (No establ ref range); C-REACTIVE PROTEIN 6.79 ng/dL (<=0.50); CALCIUM 8.6 mg/dL (8.5-10.1); CREATININE 0.97 mg/dL (0.70-1.30); EST CRCL DRUG DOSING (CG) 73.17 mL/min; MAGNESIUM 1.7 mg/dL (1.8-2.4); POTASSIUM,K 3.7 mmol/L (3.5-5.1)
[2024-02-26 06:57] LABS: A/G RATIO 0.76
[2024-02-26] MEDS: Magnesium Sulfate/Water 2 GM in Premix Bag 1 BAG IV ONE (07:36)
[2024-02-26] MEDS: Hydrochlorothiazide 25 MG Tab PO SCH (09:36)
[2024-02-26] MEDS: Lisinopril 20 MG Tab PO SCH (09:39)
[2024-02-27 06:46] LABS: BASOPHILS PERCENT AUTO 0.4 % (0.0-1.0); EOSINOPHILS PERCENT AUTO 3.9 % (1.0-3.0); HEMATOCRIT 36.7 % (40.0-54.0); HEMOGLOBIN 12.1 g/dL (14.0-18.0); LYMPHOCYTES PERCENT AUTO 21.7 % (20.5-50.1); MEAN CORPUSCULAR HEMOGLOBIN 29.7 pg (27.0-34.0); PLATELET COUNT,PLT 222 10^3/uL (150-450); RED BLOOD CELL COUNT 4.08 10^6/uL (4.6-6.2); WHITE BLOOD CELL COUNT,WBC 4.8 10^3/uL (5.0-10.0)
[2024-02-27 07:14] LABS: ALBUMIN 2.6 g/dL (3.4-5.0); ANION GAP 4.5 mEq/L (7-13); BILIRUBIN TOTAL 0.3 mg/dL (0.2-1.0); BUN/CREATININE RATIO 8.2 (No establ ref range); C-REACTIVE PROTEIN 3.78 ng/dL (<=0.50); CALCIUM 8.6 mg/dL (8.5-10.1); CREATININE 0.97 mg/dL (0.70-1.30); EST CRCL DRUG DOSING (CG) 73.17 mL/min; MAGNESIUM 1.9 mg/dL (1.8-2.4); POTASSIUM,K 3.5 mmol/L (3.5-5.1); PROTEIN TOTAL,TP 5.9 g/dL (6.4-8.2)
[2024-02-27 07:26] LABS: A/G RATIO 0.79
[2024-02-28 13:13] VITALS: BP 118/89; PULSE 85
== END 2024-02-28 11:55 | disposition home or self-care (01) | DRG 871 ==
LOC: DL.ED 16:55 → DL.MS 20:03
PROVIDERS: ADMIT Internal Medicine; ATTEND Internal Medicine
DX: A41.9 Sepsis, unspecified organism (principal); I26.99 Other pulmonary embolism without acute cor pulmonale; J84.9 Interstitial pulmonary disease, unspecified; N17.9 Acute kidney failure, unspecified; I10 Essential (primary) hypertension; Z68.30 Body mass index [BMI] 30.0-30.9, adult; K21.9 Gastro-esophageal reflux disease without esophagitis; N40.0 Benign prostatic hyperplasia without lower urinary tract symptoms; D72.829 Elevated white blood cell count, unspecified; F32.A Depression, unspecified; E66.9 Obesity, unspecified; I48.0 Paroxysmal atrial fibrillation; K44.9 Diaphragmatic hernia without obstruction or gangrene; R73.9 Hyperglycemia, unspecified; K29.50 Unspecified chronic gastritis without bleeding; Z88.0 Allergy status to penicillin; Z90.79 Acquired absence of other genital organ(s); Z98.890 Other specified postprocedural states; Z87.442 Personal history of urinary calculi; Z87.891 Personal history of nicotine dependence; Z79.899 Other long term (current) drug therapy
CPT/HCPCS: 36415; 71046; 71275; 80053; 83036; 83605; 83735; 84100; 84145; 84484; 85025; 85610; 85730; 86140; 87040; 93005; 93010; 93306; 93970; 94618; 96361; 96365; 99223; 99232; 99233; 99238; 99285; 99285-25; A9270-GY; J0456; J0696; J1644; J2470; J3475; J3490; J7030; J7050; J7620-GY; Q9967; U0002

== ENCOUNTER 2024-07-13 17:46 | Emergency (ER) | payer MEDICARE, OTHER ==
[2024-07-13 17:58] VITALS: BP 147/101; PULSE 97
[2024-07-13] MEDS: Take Home: Doxycycline 100 MG Cap, 4 Cap Pack PO ONE (18:12)
== END 2024-07-13 18:16 | disposition home or self-care (01) ==
LOC: DL.ED 17:46
DX: L02.412 Cutaneous abscess of left axilla (principal); I10 Essential (primary) hypertension; K21.9 Gastro-esophageal reflux disease without esophagitis; E66.9 Obesity, unspecified; Z90.79 Acquired absence of other genital organ(s); Z88.0 Allergy status to penicillin; Z79.01 Long term (current) use of anticoagulants; Z79.899 Other long term (current) drug therapy
CPT/HCPCS: 99283; A9270